=== PATIENT | female | born 1980 | race African-American/Black ===

== ENCOUNTER 2021-03-17 13:19 | Emergency (ER) | payer SELFPAY ==
--- OUTSIDE RECORDS SUMMARY | 2021-03-17 13:27 | XMS REPORT | Continuity of Care Document ---
:1980 Author Organization [facility] t Address [address] [place] [address] Care Team Providers Name Role Phone PCP, DOES NOT HAVE A Primary Care Physician Unavailable ROBBY BOJORQUEZ Attending Clinician Unavailable Robby Bojorquez MD Attending Clinician Georgia Newberry MD Attending Clinician Georgia NEWBERRY Attending Clinician Unavailable Problems Condition Condition Condition Status Onset Resolution Last Treating Co mments Source Name Details Category Date Date Treatment Clinician Date Obesity Obesity Disease Active 2012-03 Univers 2 ity of 00:00: [address] Rubella Rubella Disease Active 2012-03 Univers immune immune 04-27 ity of 00:00: [address] Allergies, Adverse Reactions, Alerts Allergy Allergy Status Severity Reaction(s) Onset Inactive Treating Comm ents Source Name Type Date Date Clinician NO KNOWN Drug Active Univers ALLERGIE Class ity of S [facility] Social History Social Habit Start Date Stop Date Quantity Comments Source Exposure to Unable to assess Univers ity of SARS-CoV-2 [facility] (event) Branch Alcohol intake 2020-05-30 2020-05-30 Current University of 00:00:00 00:00:00 non-drinker of [facility] alcohol Branch (finding) Tobacco use and 2013-02-24 2013-02-24 Never used Universit y of exposure 00:00:00 00:00:00 [facility] Sex Ass[birth year] Universit y of 00:00:00 00:00:00 [facility] Smoking Status Start Date Stop Date Source Never smoker [place] [facility] Medications Ordered Filled Start Stop Current Ordering Indication Dosage Frequency Signature Comments Components Source Medication Medication Date Date Medication? Clinician (SIG) Name Name gentamicin 2020-0 2020- No 2[drp] 2 Drop, U nivers (GENOPTIC) 05-30 Right Eye, it y of 0.3 % 05:45: 04:33 ONCE, 1 [place] ophthalmic 00 :00 dose, Tue Medi simona drops 2 05/30/20 at Branch Drop 0045, SANIYA gentamicin Yes [id number] 2[drp] Place 2 Univers 0.3 % 3-15 9102 Drops in ity of ophthalmic 00:00: [place] drops 00 every 4 Medical (four) Branch hours. gentamicin Yes [id number] 2[drp] Place 2 Univers 0.3 % 3-15 9102 Drops in ity of ophthalmic 00:00: [place] eye [place] drops 00 every 4 Medical (four) Branch hours. acyclovir 5 0 Yes [id number] Apply to Univers % ointment 1-17 area(s) 5 ity of 00:00: (five) [place] 00 times Medical daily. Branch acyclovir 5 2018-0 Yes [id number] Apply to Univers % ointment 1-17 area(s) 5 ity of 00:00: (five) [place] 00 times Medical daily. Branch Immunizations Ordered Filled Immunization Date Status Comments Sour e Immunization Name Name TDAP 2012-02-21 Completed University of 00:00:00 [facility] TDAP 2012-02-21 Completed University of 00:00:00 [facility] Rubella 2006-04-29 Completed University of 00:00:00 [facility] Rubella 2006-04-29 Completed University of 00:00:00 [facility] Hep B, Adol or Pedi 2000-01-10 Completed Unive rsity of Dosage 00:00:00 [facility] Td 2000-01-10 Completed University of 00:00:00 [facility] Hep B, Adol or Pedi 2000-01-10 Completed Unive rsity of Dosage 00:00:00 [facility] Td 2000-01-10 Completed University of 00:00:00 [facility] Hep B, Adol or Pedi 1998-08-15 Completed Unive rsity of Dosage 00:00:00 [facility] Branch Hep B, Adol or Pedi 1998-08-15 Completed Unive rsity of Dosage 00:00:00 [facility] Branch Hep B, Adol or Pedi 1998-03-13 Completed Unive rsity of Dosage 00:00:00 [facility] Branch Hep B, Adol or Pedi 1998-03-13 Completed Unive rsity of Dosage 00:00:00 [facility] Branch DT/Tetanus 1996-10-15 Completed University of 00:00:00 [facility] Branch DT/Tetanus 1996-10-15 Completed University of 00:00:00 [facility] Branch MMR 1991-07-30 Completed University of 00:00:00 [facility] Branch MMR 1991-07-30 Completed University of 00:00:00 [facility] Branch DTP 1986-12-19 Completed University of 00:00:00 [facility] Branch MMR 1986-12-19 Completed University of 00:00:00 [facility] Polio (IPV/OPV) 1986-12-19 Completed Universit y of 00:00:00 [facility] DTP 1986-12-19 Completed University of 00:00:00 [facility] Branch MMR 1986-12-19 Completed University of 00:00:00 [facility] Branch Polio (IPV/OPV) 1986-12-19 Completed Universit y of 00:00:00 [facility] Branch Td 1986-10-19 Completed University of 00:00:00 [facility] Branch Td 1986-10-19 Completed University of 00:00:00 [facility] Polio (IPV/OPV) 1983-05-08 Completed Universit y of 00:00:00 [facility] Branch DTP 1983-05-08 Completed University of 00:00:00 [facility] Branch Polio (IPV/OPV) 1983-05-08 Completed Universit y of 00:00:00 [facility] Branch DTP 1983-05-08 Completed University of 00:00:00 [facility] Branch DTP 1983-02-20 Completed University of 00:00:00 [facility] Branch Polio (IPV/OPV) 1983-02-20 Completed Universit y of 00:00:00 [facility] DTP 1983-02-20 Completed University of 00:00:00 [facility] Branch Polio (IPV/OPV) 1983-02-20 Completed Universit y of 00:00:00 [facility] DTP 1983-01-16 Completed University of 00:00:00 [facility] Polio (IPV/OPV) 1983-01-16 Completed Universit y of 00:00:00 [facility] Branch DTP 1983-01-16 Completed University of 00:00:00 [facility] Branch Polio (IPV/OPV) 1983-01-16 Completed Universit y of 00:00:00 [facility] Vital Signs Vital Name Observation Time Observation Value Comments Source Heart rate 2021-03-04 14:59:00 70 /min Universi ty of [facility] Body temperature 2021-03-04 14:59:00 36.83 Fransisca Univ ersity [facility] Respiratory rate 2021-03-04 14:59:00 18 /min Univ ersity of [facility] Body weight 2021-03-04 14:59:00 127.007 kg Universi ty of [facility] BMI 2021-03-04 14:59:00 49.60 kg/m2 Universi ty of [facility] Oxygen saturation in 2021-03-04 14:59:00 99 /min University of Arterial blood by [place] [employer] simona Pulse oximetry Branch Systolic blood 2020-05-30 02:11:00 166 mm[Hg] Univer sity of pressure [facility] Diastolic blood 2020-05-30 02:11:00 82 mm[Hg] Unive rsity of pressure [facility] Heart rate 2020-05-30 02:11:00 92 /min Universi ty of [facility] Body temperature 2020-05-30 02:11:00 36.61 Fransisca Univ ersity [facility] Respiratory rate 2020-05-30 02:11:00 18 /min Univ ersity of [facility] Body weight 2020-05-30 02:11:00 127.007 kg Universi ty of [facility] BMI 2020-05-30 02:11:00 49.60 kg/m2 Universi ty of [facility] Oxygen saturation in 2020-05-30 02:11:00 99 /min University of Arterial blood by [facility] Pulse oximetry Branch Procedures Procedure Date / Time Performed Performing Clinician [facility] e CONSENT/REFUSAL FOR 2021-03-04 14:55:44 Doctor Unassigned, No Un [facility] DIAGNOSIS AND Name Medical Branch TREATMENT NOTICE OF PRIVACY 2020-05-30 01:58:06 Doctor Unassigned, No Univ ersity [facility] PRACTICES Name Medical Branch CONSENT/REFUSAL FOR 2020-05-30 01:57:45 [facility] Branch TREATMENT Encounters Start End Encounter Admission Attending Care Care Encounter Source Date/Time Date/Time Type Type Clinicians Facility Department ID 2021-03-04 2021-03-04 [facility] [id number] Univers 09:01:00 10:40:00 , KENJI de la cruz of [facility] 2021-03-04 2021-03-[address] [facility] [id number] Univers 09:01:00 10:40:00 , Kenji STEVEN [id number] i ty of Robby ESPARZA [id number] [facility] [id number] [address] 2020-05-29 2020-05-29 Emergency [facility] [id number] Univers 21:15:00 23:37:00 Tico Steven [id number] ity of [place] [id number] [facility] [id number] [address] 2020-05-29 2020-05-29 [facility] [id number] Univers 21:15:00 21:15:00 TICO de la cruz [facility] Results This patient has no known results.
[2021-03-17 16:26] LABS: SARS-COV-2 RT PCR POSITIVE (NEGATIVE)
--- NOTE | 2021-03-17 17:16 | EDPHYS ---
Physician Documentation [facility] Name: Aazel Piedra Age: 40 yrs Sex: Female : 1980 Arrival Date: 03/17/2021 Time: 13:24 Bed 9 Private MD: ED Physician Enrrique Cheung HPI: 03/17 17:21 This 40 yrs old Black Female presents to ER via Ambulatory with complaints of Fever, jr8 Sore Throat, Headache. 17:21 Severity of symptoms: At their worst the symptoms were mild in the emergency department jr8 the symptoms are unchanged. The patient has not experienced similar symptoms in the past. The patient has not recently seen a physician. This is a 40-year-old female that presented to the emergency room with signs and symptoms consistent with Covid. Patient stated that her symptoms started approximately 2 days ago and has not resolved. Came in for further formalized testing for Covid.. 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 - Social history:: Smoking status: Patient denies any tobacco usage or history of. ROS: 17:21 Constitutional: Positive for body aches, chills, fever. jr8 17:21 ENT: Positive for sore throat. 17:21 Respiratory: Positive for cough. 17:21 Abdomen/GI: Positive for diarrhea, Negative for abdominal pain, nausea, vomiting. 17:21 Neuro: Positive for headache. 17:21 All other systems are negative. Exam: 17:21 Constitutional: This is a well developed, well nourished patient who is awake, alert, jr8 and in no acute distress. Eyes: Pupils equal round and reactive to light, extra-ocular motions intact. Lids and lashes normal. Conjunctiva and sclera are non-icteric and not injected. Cornea within normal limits. Periorbital areas with no swelling, redness, or edema. ENT: Nares patent. No nasal discharge, no septal abnormalities noted. Tympanic membranes are normal and external auditory canals are clear. Oropharynx with no redness, swelling, or masses, exudates, or evidence of obstruction, uvula midline. Mucous membranes moist. Neck: Trachea midline, no thyromegaly or masses palpated, and no cervical lymphadenopathy. Supple, full range of motion without nuchal rigidity, or vertebral point tenderness. No Meningismus. Cardiovascular: Regular rate and rhythm with a normal S1 and S2. No gallops, murmurs, or rubs. Normal PMI, no JVD. No pulse deficits. Respiratory: Lungs have equal breath sounds bilaterally, clear to auscultation and percussion. No rales, rhonchi or wheezes noted. No increased work of breathing, no retractions or nasal flaring. Abdomen/GI: Soft, non-tender, with normal bowel sounds. No distension or tympany. No guarding or rebound. No evidence of tenderness throughout. Skin: Warm, dry with normal turgor. Normal color with no rashes, no lesions, and no evidence of cellulitis. MS/ Extremity: Pulses equal, no cyanosis. Neurovascular intact. Full, normal range of motion. Neuro: Awake and alert, GCS 15, oriented to person, place, time, and situation. Cranial nerves II-XII grossly intact. Motor strength 5/5 in all extremities. Sensory grossly intact. Vital Signs: 14:39 BP 157 / 93; Pulse 95; Resp 18; Temp 97.2; Pulse Ox 100% on R/A; Weight 108.86 kg; iw Height 5 ft. 3 in. (160.02 cm); 14:39 Body Mass Index 42.51 (108.86 kg, 160.02 cm) iw MDM: 16:40 Patient medically screened. jr8 17:14 Data reviewed: vital signs, nurses notes, lab test result(s), and as a result, I will jr8 discharge patient. Data interpreted: Pulse oximetry: on room air is 100 %. Interpretation: normal. Counseling: I had a detailed discussion with the patient and/or guardian regarding: the historical points, exam findings, and any diagnostic results supporting the discharge/admit diagnosis, lab results, the need for outpatient follow up, a family practitioner, to return to the emergency department if symptoms worsen or persist or if there are any questions or concerns that arise at home. 17:21 ED course: Close return precautions given to patient if she were to have increase in jr8 respiratory drive, shortness of breath, hypoxia. Also she would not able to tolerate fluids and felt weak. Otherwise to follow with her PCP.. 03/17 14:42 Order name: COVID-19/FLU A+B (Document "Date of Onset" if Symptomatic); Complete Time: iw 16:43 03/17 14:42 Order name: Strep; Complete Time: 16:43 iw 03/17 15:22 Order name: Throat Culture EDMS Administered Medications: No medications were administered Disposition: 03/18 04:39 Co-signature as Attending Physician, Enrrique Cheung MD I agree with the assessment and darrell plan of care. Disposition Summary: 03/17/21 17:16 Discharge Ordered Location: Home jr8 Problem: new jr8 Symptoms: have improved jr8 Condition: Stable jr8 Diagnosis - SARS-associated coronavirus as the cause of diseases classified elsewhere jr8 Followup: jr8 - With: Private Physician - When: 1 week - Reason: Recheck today's complaints, Continuance of care, Re-evaluation by your physician Discharge Instructions: - Discharge Summary Sheet jr8 - COVID-19 jr8 - Things to Know about the COVID-19 Pandemic - [facility] jr8 - 10 Things You Can Do to Manage Your COVID-19 Symptoms at Home - [facility] jr8 Forms: - Medication Reconciliation Form jr8 - Thank You Letter jr8 - Antibiotic Education jr8 - Prescription Opioid Use jr8 - Work release form iw Prescriptions: - promethazine-DM 6.25-15 mg/5 mL Oral syrup - take 5 milliliter by ORAL route every 4-6 hours as needed, not to exceed 30 mL jr8 in 24 hours; 110 milliliter; Refills: 0, Product Selection Permitted - Tessalon Perles 100 mg Oral Capsule - take 1 capsule by ORAL route every 8 hours As needed; 15 capsule; Refills: 0, jr8 Product Selection Permitted Signatures: Dispatcher [employer] Enrrique Anthony MD MD cha Williams, Irene, RN RN iw Rodger Goss PA PA jr8 Corrections: (The following items were deleted from the chart) 03/17 14:41 14:40 PSHx: None; iw 14:42 14:40 Allergies: No Known Allergies; iw
--- NOTE | 2021-03-17 17:16 | ER ---
Nurse's Notes [facility] Name: Azael Piedra Age: 40 yrs Sex: Female : 1980 Arrival Date: 03/17/2021 Time: 13:24 Bed 9 Private MD: Diagnosis: SARS-associated coronavirus as the cause of diseases classified elsewhere Presentation: 03/17 14:39 Chief complaint: Patient states: last few days has had headaches, diarrhea, throat iw hurts, fever this morning of 102. Coronavirus screen: Client presents with at least one sign or symptom that may indicate coronavirus-19. Ebola Screen: Patient negative for fever greater than or equal to 101.5 degrees Fahrenheit, and additional compatible Ebola Virus Disease symptoms Patient denies exposure to infectious person. Patient denies travel to an Ebola-affected area in the 21 days before illness onset. No symptoms or risks identified at this time. Initial Sepsis Screen: Does the patient meet any 2 criteria? No. Patient's initial sepsis screen is negative. Does the patient have a suspected source of infection? No. Patient's initial sepsis screen is negative. Risk Assessment: Do you want to hurt yourself or someone else? Patient reports no desire to harm self or others. Onset of symptoms was March 15, 2021. 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 - Social history:: Smoking status: Patient denies any tobacco usage or history of. Screenin:59 Abuse screen: Denies threats or abuse. Nutritional screening: No deficits noted. al4 Tuberculosis screening: No symptoms or risk factors identified. Fall Risk None identified. Vital Signs: 14:39 BP 157 / 93; Pulse 95; Resp 18; Temp 97.2; Pulse Ox 100% on R/A; Weight 108.86 kg; iw Height 5 ft. 3 in. (160.02 cm); 14:39 Body Mass Index 42.51 (108.86 kg, 160.02 cm) iw ED Course: 13:24 Patient arrived in ED. mr 14:40 Triage completed. iw 16:40 Rodger Goss PA is PHCP. jr8 16:40 Enrrique Cheung MD is Attending Physician. jr8 17:40 Jannie Perez, RN is Primary Nurse. iw 17:59 Patient has correct armband on for positive identification. Bed in low position. Call al4 light in reach. Administered Medications: No medications were administered Outcome: 17:16 Discharge ordered by . jr8 18:01 Patient left the ED. iw Signatures: Antonio Thania mr Jannie Perez, RN RN iw Rodger Goss PA PA jr8 Sp Malhotra al4 Corrections: (The following items were deleted from the chart) 14:41 14:40 PSHx: None; iw iw 14:42 14:40 Allergies: No Known Allergies; iw iw
[2021-03-17 18:09] VITALS: BP 157/93; TEMP 97.2; O2SAT 100
== END 2021-03-17 18:01 | disposition home or self-care (01) ==
LOC: ER 13:19
DX: U07.1 COVID-19 (principal)
CPT/HCPCS: 0240U; 87070; 87081; 99281

== ENCOUNTER 2021-03-20 09:37 | Emergency (ER) | payer SELFPAY ==
--- OUTSIDE RECORDS SUMMARY | 2021-03-20 09:41 | XMS REPORT | Continuity of Care Document ---
:1980 Author Organization [facility] t Address [address] [place] [address] Care Team Providers Name Role Phone PCP, DOES NOT HAVE A Primary Care Physician Unavailable ROBBY BOJORQUEZ Attending Clinician Unavailable Robby oBjorquez MD Attending Clinician Georgia Newberry MD Attending Clinician Georgia NEWBERRY Attending Clinician Unavailable Problems Condition Condition Condition Status Onset Resolution Last Treating Co mments Source Name Details Category Date Date Treatment Clinician Date Obesity Obesity Disease Active 2012-03 Univers 2 ity of 00:00: [address] Rubella Rubella Disease Active 2012-03 Univers immune immune 04-27 ity of 00:00: [address] Allergies, Adverse Reactions, Alerts Allergy Allergy Status Severity Reaction(s) Onset Inactive Treating Comm ents Source Name Type Date Date Clinician NO KNOWN Drug Active Univers ALLERGIE Class ity of S [facility] Social History Social Habit Start Date Stop Date Quantity Comments Source Exposure to Unable to assess Univers ity of SARS-CoV-2 [facility] (event) Branch Alcohol intake 2020-05-30 2020-05-30 Current University of 00:00:00 00:00:00 non-drinker of [facility] alcohol Branch (finding) Tobacco use and 2013-02-24 2013-02-24 Never used Universit y of exposure 00:00:00 00:00:00 [facility] Sex Assigned [birth year] Universit y of 00:00:00 00:00:00 [facility] Smoking Status Start Date Stop Date Source Never smoker [place] [facility] Branch Medications Ordered Filled Start Stop Current [...] at Branch Drop 0045, SANIYA gentamicin Yes [id number] 2[drp] Place 2 Univers 0.3 % 3-15 9102 Drops in ity of ophthalmic 00:00: [place] drops 00 every 4 Medical (four) Branch hours. gentamicin Yes [id number] 2[drp] Place 2 Univers 0.3 % 3-15 9102 Drops in ity of ophthalmic 00:00: [place] eye [place] drops 00 every 4 Medical (four) Branch hours. acyclovir 5 0 Yes [id number] Apply to Univers % ointment 1-17 area(s) 5 ity of 00:00: (five) [place] 00 times Medical daily. Branch acyclovir 5 2018-0 Yes [id number] Apply to Univers % ointment 1-17 area(s) 5 ity of 00:00: (five) [place] 00 times Medical daily. Branch Immunizations Ordered Filled Immunization Date Status Comments Sour e Immunization Name Name TDAP 2012-02-21 Completed University of 00:00:00 [facility] TDAP 2012-02-21 Completed University of 00:00:00 [facility] Rubella 2006-04-29 Completed University of 00:00:00 [facility] Rubella 2006-04-29 Completed University of 00:00:00 [facility] Hep B, Adol or Pedi 2000-01-10 Completed Unive rsity of Dosage 00:00:00 [facility] Td 2000-01-10 Completed University of 00:00:00 [facility] Hep B, Adol or Pedi 2000-01-10 Completed Unive rsity of Dosage 00:00:00 [facility] Td 2000-01-10 Completed University of 00:00:00 [facility] Hep B, Adol or Pedi 1998-08-15 Completed Unive rsity of Dosage 00:00:00 [facility] Branch Hep B, Adol or Pedi 1998-08-15 Completed Unive rsity of Dosage 00:00:00 [facility] Branch Hep B, Adol or Pedi 1998-03-13 Completed Unive rsity of Dosage 00:00:00 [facility] Branch Hep B, Adol or Pedi 1998-03-13 Completed Unive rsity of Dosage 00:00:00 [facility] Branch DT/Tetanus 1996-10-15 Completed University of 00:00:00 [facility] Branch DT/Tetanus 1996-10-15 Completed University of 00:00:00 [facility] Branch MMR 1991-07-30 Completed University of 00:00:00 [facility] Branch MMR 1991-07-30 Completed University of 00:00:00 [facility] Branch DTP 1986-12-19 Completed University of 00:00:00 [facility] Branch MMR 1986-12-19 Completed University of 00:00:00 [facility] Polio (IPV/OPV) 1986-12-19 Completed Universit y of 00:00:00 [facility] DTP 1986-12-19 Completed University of 00:00:00 [facility] Branch MMR 1986-12-19 Completed University of 00:00:00 [facility] Branch Polio (IPV/OPV) 1986-12-19 Completed Universit y of 00:00:00 [facility] Branch Td 1986-10-19 Completed University of 00:00:00 [facility] Branch Td 1986-10-19 Completed University of 00:00:00 [facility] Polio (IPV/OPV) 1983-05-08 Completed Universit y of 00:00:00 [facility] Branch DTP 1983-05-08 Completed University of 00:00:00 [facility] Branch Polio (IPV/OPV) 1983-05-08 Completed Universit y of 00:00:00 [facility] Branch DTP 1983-05-08 Completed University of 00:00:00 [facility] Branch DTP 1983-02-20 Completed University of 00:00:00 [facility] Branch Polio (IPV/OPV) 1983-02-20 Completed Universit y of 00:00:00 [facility] DTP 1983-02-20 Completed University of 00:00:00 [facility] Branch Polio (IPV/OPV) 1983-02-20 Completed Universit y of 00:00:00 [facility] DTP 1983-01-16 Completed University of 00:00:00 [facility] Polio (IPV/OPV) 1983-01-16 Completed Universit y of 00:00:00 [facility] Branch DTP 1983-01-16 Completed University of 00:00:00 [facility] Branch Polio (IPV/OPV) 1983-01-16 Completed Universit y of 00:00:00 [facility] Vital Signs Vital Name Observation Time Observation Value Comments Source Heart rate 2021-03-04 14:59:00 70 /min Universi ty of [facility] Body temperature 2021-03-04 14:59:00 36.83 Fransisca Univ ersity [facility] Respiratory rate 2021-03-04 14:59:00 18 /min Univ ersity of [facility] Body weight 2021-03-04 14:59:00 127.007 kg Universi ty of [facility] BMI 2021-03-04 14:59:00 49.60 kg/m2 Universi ty of [facility] Oxygen saturation in 2021-03-04 14:59:00 99 /min University of Arterial blood by [place] [employer] Pulse oximetry Branch Systolic blood 2020-05-30 02:11:00 166 mm[Hg] Univer sity of pressure [facility] Diastolic blood 2020-05-30 02:11:00 82 mm[Hg] Unive rsity of pressure [facility] Heart rate 2020-05-30 02:11:00 92 /min Universi ty of [facility] Body temperature 2020-05-30 02:11:00 36.61 Fransisca Univ ersity [facility] Respiratory rate 2020-05-30 02:11:00 18 /min Univ ersity of [facility] Body weight 2020-05-30 02:11:00 127.007 kg Universi ty of [facility] BMI 2020-05-30 02:11:00 49.60 kg/m2 Universi ty of [facility] Oxygen saturation in 2020-05-30 02:11:00 99 /min University of Arterial blood by [facility] Pulse oximetry Branch Procedures Procedure Date / Time Performed Performing Clinician [facility] e CONSENT/REFUSAL FOR 2021-03-04 14:55:44 Doctor Unassigned, No Un [facility] DIAGNOSIS AND Name Medical Branch TREATMENT NOTICE OF PRIVACY 2020-05-30 01:58:06 Doctor Unassigned, No Univ ersity [facility] PRACTICES Name Medical Branch CONSENT/REFUSAL FOR 2020-05-30 01:57:45 [facility] Name [facility] Branch TREATMENT Encounters Start End Encounter Admission Attending Care Care Encounter Source Date/Time Date/Time Type Type Clinicians Facility Department ID 2021-03-04 2021-03-04 Emergency [facility] [id number] Univers 09:01:00 10:40:00 , KENJI de la cruz of [facility] 2021-03-04 2021-03-04 [facility] [id number] Univers 09:01:00 10:40:00 , Kenji STEVEN [id number] i ty of Robby ESPARZA [id number] [facility] [id number] [address] 2020-05-29 2020-05-29 Emergency [facility] [id number] Univers 21:15:00 23:37:00 Tico Steven [id number] ity of [place] [id number] [facility] [id number] [address] 2020-05-29 2020-05-29 Emergency X [facility] ERT [id number] Univers 21:15:00 21:15:00 TICO de la cruz [facility] Results This patient has no known results.
--- NOTE | 2021-03-20 10:50 | RAD REPORT ---
EXAM DESCRIPTION: Danielle Medina (2 Views)03/20/2021 10:27 am CLINICAL HISTORY: Cough COMPARISON: None FINDINGS: The lungs appear clear of acute infiltrate. The heart is borderline enlarged IMPRESSION: No acute abnormalities displayed
[2021-03-20 11:20] LABS: Absolute Lymphocytes (CBC) 2.1 K/uL (0.7-4.9); Hematocrit 36.7 % (36.0-45.0); Lymphocytes % 30.1 % (15.3-44.8); MPV 8.2 fL (7.6-11.3); RBC Red Blood Cell Count 5.17 M/uL (3.86-4.86)
[2021-03-20 14:27] LABS: BUN Blood Urea Nitrogen 9 mg/dL (7-18); Bicarbonate 27 mmol/L (21-32); Glucose Level 88 mg/dL (74-106); Potassium 3.9 mmol/L (3.5-5.1); Sodium Level 141 mmol/L (136-145)
--- NOTE | 2021-03-20 15:00 | ER ---
Nurse's Notes [facility] Name: Azael Piedra Age: 40 yrs Sex: Female : 1980 Arrival Date: 03/20/2021 Time: 09:40 Bed 18 Private MD: Diagnosis: Coronavirus infection, unspecified;Chest pain, unspecified Presentation: 03/20 10:07 Chief complaint: Patient states: CP for 2 days. Tested positive for covid Friday. ll1 Coronavirus screen: Vaccine status: Patient reports receiving the 2nd dose of the covid vaccine. Client denies travel out of the [place] in the last 14 days. congestion, cough unrelated to allergies. Ebola Screen: Patient denies travel to an Ebola-affected area in the 21 days before illness onset. Initial Sepsis Screen: Does the patient meet any 2 criteria? No. Patient's initial sepsis screen is negative. Does the patient have a suspected source of infection? No. Patient's initial sepsis screen is negative. Risk Assessment: Do you want to hurt yourself or someone else? Patient reports no desire to harm self or others. Onset of symptoms was March 19, 2021. 10:07 Method Of Arrival: Ambulatory ll1 10:07 Acuity: PRINCESS 3 ll1 Triage Assessment: 11:18 General: Appears in no apparent distress. Behavior is. 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 - Social history:: Smoking status: Patient denies any tobacco usage or history of. Screenin:17 Abuse screen: Denies threats or abuse. Denies injuries from another. Nutritional pompa screening: No deficits noted. Tuberculosis screening: No symptoms or risk factors identified. Fall Risk None identified. Assessment: 11:17 Pain: Complains of pain in chest Pain does not radiate. Pain began gradually. pompa Cardiovascular: Reports chest pain, shortness of breath. Vital Signs: 10:07 BP 150 / 96; Pulse 82; Resp 17; Temp 97.5; Pulse Ox 100% ; Weight 108.86 kg; Height 5 ll1 ft. 3 in. (160.02 cm); Pain 9/10; 11:21 BP 94 / 64; Pulse 72; Resp 18; Pulse Ox 100% on R/A; pompa 13:06 BP 143 / 102; Pulse 74; Resp 18; Pulse Ox 100% on R/A; pompa 13:45 BP 108 / 68; Pulse 77; Resp 18; Pulse Ox 100% ; pompa 10:07 Body Mass Index 42.51 (108.86 kg, 160.02 cm) ll1 ED Course: 09:40 Patient arrived in ED. am2 10:10 Triage completed. ll1 10:10 Iliana Kendrick FNP-C is PHCP. kb 10:10 Bryan Easley MD is Attending Physician. kb 10:10 Arm band placed on. ll1 10:27 XRAY Chest Pa And Lat (2 Views) In Process Unspecified. EDMS 11:17 Patient has correct armband on for positive identification. Bed in low position. pompa hide inspector on. Pulse ox on. NIBP on. 11:17 D-Dimer Sent. pompa 11:17 Basic Metabolic Panel Sent. pompa 11:17 CBC with Diff Sent. pompa 11:17 No provider procedures requiring assistance completed. Inserted saline lock: 20 gauge pompa in left forearm, using aseptic technique. Patient maintains SpO2 saturation greater than 95% on room air. 15:26 IV discontinued, intact, Pressure dressing applied. pompa Administered Medications: No medications were administered Outcome: 14:59 Discharge ordered by . kb 15:25 Discharged to home pompa 15:25 Condition: good 15:25 Discharge instructions given to patient. 15:26 Patient left the ED. pompa Signatures: Dispatcher [employer] EDMT Iliana Kendrick FNP-C FNP-Ckb Moreno, Amanda 2 Darryl Mendieta, RN RN [facility]va Tran RN RN
--- NOTE | 2021-03-20 15:00 | EDPHYS ---
Physician Documentation [facility] Name: Azael Piedra Age: 40 yrs Sex: Female : 1980 Arrival Date: 03/20/2021 Time: 09:40 Bed 18 Private MD: ED Physician Bryan Easley HPI: 03/20 10:32 This 40 yrs old Black Female presents to ER via Ambulatory with complaints of Chest kb Pain, covid+. 10:32 The patient or guardian reports chest pain that is located primarily in the anterior kb chest wall. The pain does not radiate. Associated signs and symptoms: The patient has no apparent associated signs or symptoms. The chest pain is described as aching. Duration: The patient or guardian reports a single episode. Modifying factors: The symptoms are alleviated by nothing. the symptoms are aggravated by nothing. Severity of pain: At its worst the pain was moderate in the emergency department the pain is unchanged. The patient has not experienced similar symptoms in the past. The patient has not recently seen a physician. Pt reports she was diagnosed with covid on Friday and has had chest pain for 2 days. 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 - Social history:: Smoking status: Patient denies any tobacco usage or history of. ROS: 10:29 Constitutional: Negative for fever, chills, and weight loss. kb 10:29 Cardiovascular: Positive for chest pain, Negative for edema, orthopnea, palpitations, paroxysmal nocturnal dyspnea. 10:29 All other systems are negative. Exam: 10:29 Constitutional: This is a well developed, well nourished patient who is awake, alert, kb and in no acute distress. Head/Face: Normocephalic, atraumatic. ENT: Moist Mucous membranes Cardiovascular: Regular rate and rhythm with a normal S1 and S2. No gallops, murmurs, or rubs. No pulse deficits. Respiratory: Respirations even and unlabored. No increased work of breathing. Talking in full sentences Skin: Warm, dry with normal turgor. Normal color. MS/ Extremity: Pulses equal, no cyanosis. Neurovascular intact. Full, normal range of motion. Neuro: Awake and alert, GCS 15, oriented to person, place, time, and situation. Moves all extremities. Normal gait. Psych: Awake, alert, with orientation to person, place and time. Behavior, mood, and affect are within normal limits. Vital Signs: 10:07 BP 150 / 96; Pulse 82; Resp 17; Temp 97.5; Pulse Ox 100% ; Weight 108.86 kg; Height 5 ll1 ft. 3 in. (160.02 cm); Pain 9/10; 11:21 BP 94 / 64; Pulse 72; Resp 18; Pulse Ox 100% on R/A; pompa 13:06 BP 143 / 102; Pulse 74; Resp 18; Pulse Ox 100% on R/A; pompa 13:45 BP 108 / 68; Pulse 77; Resp 18; Pulse Ox 100% ; pompa 10:07 Body Mass Index 42.51 (108.86 kg, 160.02 cm) ll1 MDM: 10:10 Patient medically screened. kb 10:29 Data reviewed: vital signs, nurses notes. Data interpreted: Pulse oximetry: on room air kb is 100 %. Interpretation: normal. 14:42 Counseling: I had a detailed discussion with the patient and/or guardian regarding: the kb historical points, exam findings, and any diagnostic results supporting the discharge/admit diagnosis, lab results, radiology results, the need for outpatient follow up, a family practitioner, to return to the emergency department if symptoms worsen or persist or if there are any questions or concerns that arise at home. 03/20 10:11 Order name: CBC with Diff; Complete Time: 11:27 kb 03/20 10:11 Order name: Basic Metabolic Panel; Complete Time: 14:27 kb 03/20 10:08 Order name: XRAY Chest Pa And Lat (2 Views); Complete Time: 10:53 rn 03/20 10:11 Order name: IV Start; Complete Time: 11:17 kb 03/20 10:11 Order name: D-Dimer; Complete Time: 14:19 kb 03/20 10:11 Order name: EKG; Complete Time: 10:11 kb 03/20 10:11 Order name: EKG - Nurse/Tech; Complete Time: 13:09 kb 03/20 11:27 Order name: Labs - recollect needed: blue and green top, hemolyzed; Complete Time: 15:26dh3 03/20 13:31 Order name: Labs - recollect needed: blue \T\ green top, hemolyzed; Complete Time: 15:26 dh3 Administered Medications: No medications were administered Disposition: 17:47 Co-signature as Attending Physician, Bryan Easley MD I agree with the assessment and rn plan of care. Attestation: The patient's history, exam findings, diagnostics, and a summary of any interventions or procedures was reviewed in detail with Iliana BREWSTER. Disposition Summary: 03/20/21 14:59 Discharge Ordered Location: Home kb Condition: Stable kb Diagnosis - Coronavirus infection, unspecified kb - Chest pain, unspecified kb Followup: kb - With: Emergency Department - When: As needed - Reason: Worsening of condition Followup: kb - With: Private Physician - When: 2 - 3 days - Reason: Recheck today's complaints, Continuance of care, Re-evaluation by your physician Discharge Instructions: - Discharge Summary Sheet kb - Nonspecific Chest Pain, Adult, [id number] kb - Viral Respiratory Infection, [id number] kb - COVID-19 kb Forms: - Medication Reconciliation Form kb - Thank You Letter kb - Antibiotic Education kb - Prescription Opioid Use kb Signatures: Dispatcher [employer] EDMS Iliana Kendrick FNP-C FNP-Bryan Holt MD MD rn [place] [id number] Darryl Mendieta RN RN ll1
[2021-03-20 15:50] VITALS: TEMP 97.5; O2SAT 100
[2021-03-20 15:57] VITALS: BP 108/68
--- NOTE | 2021-03-21 11:25 | EKG ---
Test Date: 2021-03-20 Test Time: 14:42:43 [place]: CHELSEA MEASUREMENT RESULTS: Intervals: Rate: 78 FL: 140 QRSD: 74 QT: 394 QTc: 449 Arabi: P: 27 FL: 140 QRS: 5 T: 13 INTERPRETIVE STATEMENTS: Normal sinus rhythm Normal ECG No previous ECG available for comparison Electronically Signed On 03-21-21 11:22:23 MANAGER INSIDE by J Carlos Mcfadden
== END 2021-03-20 15:26 | disposition home or self-care (01) ==
LOC: ER 09:37
DX: U07.1 COVID-19 (principal); Z91.018 Allergy to other foods
CPT/HCPCS: 36415; 71046; 80048; 85025; 85379; 93005; 99285

== ENCOUNTER 2023-09-20 12:25 | Emergency (ER) | payer SELFPAY ==
--- OUTSIDE RECORDS SUMMARY | 2023-09-20 12:28 | XMS REPORT | Continuity of Care Document ---
Author Name Unknown Address [address] [facility] [address] [place] [address] [facility] thconnect Address [address] [facility] [place] [address] Care Team Providers Care Loan Operations Specialist Name Role Phone Maria Shay Primary Care Physicia n Yuli Rojas CNM Attending Clinician [phone] Lab, Radha Attending Clinician Unavailable Maria Shay Attending Clinician + MARIA WALTERS Attending Clinician Unavail able YULI ROJAS Attending Clinician Unavaila ble Doctor Unassigned, Frederic Attending Clinician U AMMON Ruby Attending Clinician Unavailab nancy Patel RN, Zo Torres Attending Clinician Unavailab le Visit, Radha Nurse Attending Clinician Unava ilAmmon Eid Attending Clinician + [phone] Nga Griffin Attending Clinician [phone] NGA FORTE Attending Clinician Unavailable AGUEDA BOJORQUEZ Attending Clinician Unav Agueda Cabrera MD Attending Clinician + Bright Syed MD Attending Clinician [phone] BRIGHT SYED Attending Clinician Unavailable Payers Payer Name Policy Type Policy Number Effective Date Expirati on Date Source Problems Condition Name Condition Details Condition Category Status Onset Date Resolution Date Last Treatment Date Treating Clinician Comments Source Other general counseling and advice for contracept ashley management Other general counseling and advice for contracept ashley management Disease Active 05-30 00:00: 00 [facility] Numerous skin moles Numerous skin moles Disease Active 05-30 00:00: 00 [facility] Rubella immune Rubella immune Disease Active 2012-03 00:00: 00 [facility] Morbid obesity Morbid obesity Disease Active 2012-03 00:00: 00 [facility] Allergies, Adverse Reactions, Alerts Allergy Name Allergy Type Status Severity Reaction(s) Onset Date Inactive Date Treating Clinician Comments Source NO KNOWN ALLERGIE S Drug Class Active [facility] Social History Social Habit Start Date Stop Date Quantity Comments Source Gender identity [facility] Exposure to SARS-CoV-2 (event) 2022-07-06 00:00:00 2022-07-16 14:29:00 Not sure [facility] Alcohol intake 2022-07-16 00:00:00 2022-07-16 00:00:00 Current non-drinker of alcohol (finding) [facility] History of Social function 2022-07-16 00:00:00 2022-07-16 00:00:00 [facility] Tobacco use and exposure 2021-12-03 00:00:00 2021-12-03 00:00:00 Smokeless tobacco non-user [facility] Sex Assigned At 1980 00:00:00 1980 00:00:00 [facility] Smoking Status Start Date Stop Date Source Never smoked tobacco [facility] Medications Ordered Medication Name Filled Medication Name Start Date Stop Date Current Medication? Ordering Clinician Indication Dosage Frequency Signature (SIG) Comments Components Source Iron Fum & P-FA-Vit B & C No.9 (INTEGRA PLUS) 125 mg iron- 1 mg Cap 07-18 00:00: 00 Yes [id number] 1{capsu le} Take 1 capsule by mouth in the morning. [facility] Iron Fum & P-FA-Vit B & C No.9 (INTEGRA PLUS) 125 mg iron- 1 mg Cap 07-18 00:00: 00 Yes [id number] 1{capsu le} Take 1 capsule by mouth in the morning. [facility] acyclovir 5 % ointment 04-02 00:00: 00 07-16 00:00 :00 No [id number] Apply to area(s) 5 (five) times daily. [facility] Vital Signs Vital Name Observation Time Observation Value Comments S ource Systolic blood pressure 2022-07-16 19:43:00 132 mm[Hg] [facility] Diastolic blood pressure 2022-07-16 19:43:00 76 mm[Hg] [facility] Heart rate 2022-07-16 19:43:00 100 /min [facility] Body temperature 2022-07-16 19:43:00 36.83 Fransisca [facility] Respiratory rate 2022-07-16 19:43:00 18 /min [facility] Body height 2022-07-16 19:43:00 160 cm [facility] Body weight 2022-07-16 19:43:00 139.283 kg [facility] BMI 2022-07-16 19:43:00 54.39 kg/m2 [facility] Systolic blood pressure 2021-12-03 13:33:00 133 mm[Hg] [facility] Diastolic blood pressure 2021-12-03 13:33:00 81 mm[Hg] [facility] Heart rate 2021-12-03 13:33:00 75 /min Unive [facility] Body temperature 2021-12-03 13:33:00 36.72 Fransisca [facility] Respiratory rate 2021-12-03 13:33:00 20 /min [facility] Body height 2021-12-03 13:33:00 160 cm [facility] Body weight 2021-12-03 13:33:00 132.932 kg [facility] BMI 2021-12-03 13:33:00 51.91 kg/m2 [facility] Systolic blood pressure 2021-07-04 13:42:00 135 mm[Hg] [facility] Diastolic blood pressure 2021-07-04 13:42:00 89 mm[Hg] [facility] Heart rate 2021-07-04 13:42:00 76 /min [facility] Body temperature 2021-07-04 13:41:00 35.94 Fransisca [facility] Respiratory rate 2021-07-04 13:41:00 16 /min [facility] Body height 2021-07-04 13:41:00 160 cm [facility] Body weight 2021-07-04 13:41:00 130.228 kg [facility] BMI 2021-07-04 13:41:00 50.86 kg/m2 [facility] Procedures Procedure Date / Time Performed Performing Clinicia n Source GC & CHLAMYDIA AMPLIFIED ASSAY 2022-07-16 21:15:00 Yuli Rojas [facility] ASSIGNMENT OF BENEFITS 2022-07-16 19:30:51 Docto r Unassigned, Frederic [facility] GARDASIL 9 (HPV 9V) VACCINE 2021-12-03 13:40:47 Maria Walters [facility] GARDASIL 9 (HPV 9V) VACCINE 2021-07-04 13:33:47 Maria Walters [facility] REFERRAL- REQUEST/RESPONSE 2021-06-18 05:01:00 Doctor Unassigned, Frederic [facility] Encounters Start Date/Time End Date/Time Encounter Type Admission Type Attending Clinicians Care Facility Care Department Encounter ID Source 2022-10-23 00:00:00 2022-10-23 00:00:00 Telephone Yuli Rojas [facility] COUNSEL[employer] [facility] MATERNAL & CHILD [facility] [id number] 350.1.13.10 4.2.7.2.686 [id number] [facility] 2022-10-21 08:30:00 2022-10-21 08:30:00 Media Assistant Visit Lab, Ang-Rmchp Aneeshhalima Maria Conti [facility] COUNSEL[employer] [facility] & CHILD [facility] [id number] 350.1.13.10 4.2.7.2.686 [id number] [facility] 2022-10-21 08:30:00 2022-10-21 08:29:43 Outpatient R MARIA WALTERS [facility] [id number] [facility] 2022-07-18 00:00:00 2022-07-18 00:00:00 Case Management Yuli Rojas [facility] COUN[employer] [facility] & CHILD [facility] [id number] 350.1.13.10 4.2.7.2.686 [id number] [facility] 2022-07-18 00:00:00 2022-07-18 00:00:00 Telephone Yuli Rojas [facility] COUNSEL[employer] [facility] & CHILD [facility] [id number] 350.1.13.10 4.2.7.2.686 [id number] [facility] 2022-07-17 08:30:00 2022-07-17 14:07:56 Media Assistant Visit Lab, EladioJsxavi GrahammicheleMaria varghese [facility] COUNSELOR [employer] [facility] CHILD [facility] [id number] 350.1.13.10 4.2.7.2.686 [id number] [facility] 2022-07-17 08:30:00 2022-07-17 08:30:00 Outpatient R MARIA WALTERS [facility] [id number] [facility] 2022-07-16 14:45:00 2022-07-16 15:50:45 Outpatient R YULI ROJAS [facility] [id number] [facility] 2022-07-16 14:45:00 2022-07-16 15:50:45 Office Visit Yuli Rojas [facility] COUNSELOR [employer]ATION [facility] MATERNAL & CHILD [facility] 1.0.114 350.1.13.10 4.2.7.2.686 [id number] [facility] 2022-07-16 13:15:00 2022-07-16 13:15:00 Outpatient R [facility] [id number] [facility] 2022-07-16 00:00:00 2022-07-16 00:00:00 Orders Only Doctor Unassigned, Frederic [facility] 1.0.114 350.1.13.10 4.2.7.2.686 [id number] [facility] 2022-07-12 08:00:00 2022-07-12 08:00:00 Outpatient R YULI ROJAS [facility] [id number] [facility] 2022-06-03 13:00:00 2022-06-03 13:00:00 Outpatient R AMMON MANLEY [facility] [id number] [facility] 2022-06-03 13:00:00 2022-06-03 13:00:00 Outpatient R MARIA WALTERS [facility] [id number] [facility] 2022-01-01 00:00:00 2022-01-01 00:00:00 Telephone Maria Walters [facility] COUNSEL[employer] [facility] MATERNAL & CHILD [facility] 1.84.114 350.1.13.10 4.2.7.2.686 [id number] [facility] 2022-01-01 00:00:00 2022-01-01 00:00:00 Nurse Triage Zo Patel [facility] 1..114 350.1.13.10 4.2.7.2.686 [id number] [facility] 2021-12-03 08:30:00 2021-12-03 08:40:57 Nurse Visit Visit, Ang-Rmchp Nurse Ammon Manley [facility] COUNSELOR [employer]ATION [facility] MATERNAL & CHILD [facility] [id number] 350.1.13.10 4.2.7.2.686 [id number] [facility] 2021-12-03 08:30:00 2021-12-03 08:30:00 Outpatient R AMMON MANLEY [facility] [id number] [facility] 2021-07-04 10:30:00 2021-07-04 10:30:00 Outpatient R [facility] [id number] [facility] 2021-07-04 09:00:00 2021-07-04 09:00:00 Nurse Visit Visit, Anthony-Rmchp Ammon Kelley [facility] COUNSEL[employer] [facility] [id number] 350.1.13.10 4.2.7.2.686 [id number] [facility] 2021-07-04 08:30:00 2021-07-04 08:30:00 Outpatient R AMMON MANLEY [facility] [id number] [facility] 2021-07-02 15:00:00 2021-07-02 15:00:00 Outpatient R [facility] [id number] [facility] 2021-07-02 15:00:00 2021-07-02 15:00:00 Outpatient R MARIA WALTERS [facility] [id number] [facility] 2021-07-02 15:00:00 2021-07-02 15:00:00 Outpatient R MARIA WALTERS [facility] [id number] [facility] 2021-06-28 15:30:00 2021-06-28 15:30:00 Outpatient R [facility] [id number] [facility] 2021-06-18 00:00:00 2021-06-18 00:00:00 Orders Only Doctor Unassigned, Frederic [facility] 1.2840.114 350.1.13.10 4.2.7.2.686 [id number] [facility] 2021-06-06 00:00:00 2021-06-06 00:00:00 Telephone Maria Walters [facility] [employer]SEL[employer] [facility] [id number] 350.1.13.10 4.2.7.2.686 [id number] [facility] 2021-06-01 00:00:00 2021-06-01 00:00:00 Telephone Maria Walters [facility] COUNSELOR N[employer]ATION [facility] CHILD [facility] 1.2840.114 350.1.13.10 4.2.7.2.686 [id number] [facility] 2021-05-31 00:00:00 2021-05-31 00:00:00 Telephone Maria Walters COUNSEL[employer] [facility] CHILD [facility] 1.2840.114 350.1.13.10 4.2.7.2.686 [id number] [facility] 2021-05-30 13:15:00 2021-05-30 14:28:18 Outpatient R MARIA WALTERS [facility] [id number] [facility] 2021-05-30 13:15:00 2021-05-30 14:28:18 Office Visit Maria Walters [employer] [facility] CH[facility] 1.2840.114 350.1.13.10 4.2.7.2.686 [id number] [facility] 2021-05-30 13:15:00 2021-05-30 14:28:18 Outpatient R MARIA WALTERS [facility] [id number] [facility] 2021-05-30 13:15:00 2021-05-30 13:15:00 Outpatient R MARIA WALTERS [facility] [id number] [facility] 2021-05-30 00:00:00 2021-05-30 00:00:00 Orders Only Doctor Unassigned, Frederic [facility] 1.2840.114 350.1.13.10 4.2.7.2.686 [id number] [facility] 2021-04-27 08:00:00 2021-04-27 08:30:00 Office Visit Nga Forte [facility] 1.84.114 350.1.13.10 4.2.7.2.686 [id number] [facility] 2021-04-27 08:00:00 2021-04-27 08:00:00 Outpatient R NGA FORTE [facility] [id number] [facility] 2021-04-27 08:00:00 2021-04-27 08:00:00 Outpatient NGA ARMSTRONG [facility] [id number] [facility] 2021-03-04 09:01:00 2021-03-04 10:40:00 Emergency X MICHAELAGUEDA MG [facility] ERT [id number] [facility] 2021-03-04 09:01:00 2021-03-04 10:40:00 Emergency Agueda Bojorquez [facility] 1.2840.114 350.1.13.10 4.2.7.2.686 [id number] [facility] 2020-05-29 21:15:00 2020-05-29 23:37:00 Emergency Bright Syed [facility] 1.2840.114 350.1.13.10 4.2.7.2.686 [id number] [facility] 2020-05-29 21:15:00 2020-05-29 21:15:00 Emergency X BRIGHT SYED [facility] ERT [id number] [facility] Results Test Description Test Time Test Comments Results Result Co mments Source LIPID [id number] 04:06:40* Test Item Value Reference Range Interpretation Comme nts CHOLESTEROL (test code = 2210) 189 MG/DL <200 TRIGLYCERIDES (test code = 2232) 122 MG/DL <150 HDL CHOLESTEROL (test code = 2220) 47 MG/DL >39 CALC LDL CHOL (test code = 2237) 119 MG/DL <100 H NOTE: CALCULATED LDL IS BASED ON KHRIS-ABREU METHOD WHICHINCLUDES ADJUSTABLE TRIGLYCERIDE:VLDL CHOLESTEROL RATIO.THIS FACTOR VARIES BY MEASURED TRIGLYCERIDE AND NON-HDLCHOLESTEROL CONCENTRATIONS WITH INCREASED CALCULATED LDL SEENIN HIGHER TRIGLYCERIDE OR LOWER NON-HDL SPECIMENS. FOR MOREINFORMATION, SEE CLIENT ANNOUNCEMENT AT [email or web address] RISK RATIO LDL/HDL (test code = 2238) 2.53 RATIO <3.22 UNLESS OTHERW ISE INDICATED, ALL TESTING PERFORMED [facility] [address] [place] [id number] [employer]ILDING CONSTRUCTION IRONWORKER: JESUS REYNA M.D. CLIA NUMBER [id number] [facility] [place]. [id number] Notes Date/Time Note Provider Source 2022-10-23 09:25:58 [id number]:25:58F ormatting of this note might be different from the original.Notified patient of CBC results. Pt states she did start iron back in July as recommended. She states she did not take it daily. Reviewed results. Advised to take iron daily, increase iron rich foods, and establish care with PCP for further management. Pt verbalized understanding. SHEILA DAVENPORT RN 10/23/2022 9:27 AM [id number] encounter [id number]:27:19Telephone encounter [id number] 9|[id number] for patient [id number] YYXFPFDPURTQAOWZ0436-93-15X61:27:191.2.840 .713038.1.72.3.15|1.2.840.167656.1.13.104. [id number] [facility] 2022-10-23 07:42:54 [id number]:42:54F ormatting of this note might be different from the original.Please contact patient and have her start OTC iron supplement daily, increase iron rich foods, and follow up with PCP since this is ongoing issue. [id number] encounter [id number]:44:10Telephone encounter [id number] 9|[id number] for patient [id number] [id number]:44:101.2.840 .452770.1.72.3.15|1.2.840.506789.1.13.104. [id number] [facility]"
[2023-09-20 13:15] LABS: Absolute Basophils 0.1 K/uL (0-0.5); Absolute Eosinophils 0.2 K/uL (0-0.5); Absolute Lymphocytes (CBC) 2.3 K/uL (0.7-4.9); Absolute Monocytes 0.9 K/uL (0.1-1.3); Absolute Neutrophil 7.1 K/uL (1.8-8.0); Basophils % 0.8 % (0-1.3); Eosinophils % 1.6 % (0-4.4); Hematocrit 30.7 % (36.0-45.0); Hemoglobin 9.3 g/dL (12.0-15.0); Lymphocytes % 21.9 % (15.3-44.8); MCH 19.8 pg (27.0-35.0); MCHC 30.2 g/dL (32.0-36.0); MCV 65.5 fL (80-100); MPV 8.1 fL (7.6-11.3); Monocytes % 8.2 % (3.3-12.3); Neutrophils % 67.5 % (41.7-73.7); Platelets 327 thou/uL (152-406); RBC Red Blood Cell Count 4.69 M/uL (3.86-4.86); Red Cell Distribution Width 18.6 % (12.1-15.2)
[2023-09-20 13:23] LABS: Sqamous Epithelial 20-50 /HPF (None Seen); Urine Bacteria <20 /HPF (<20); Urine Culture Reflex Order NOT NEEDED; Urine Microscopic Reflex YN ORDER UMIC; Urine Mucus 2+ /HPF (None Seen); Urine WBC <5 /HPF (<5)
[2023-09-20 13:26] LABS: Specific Gravity 1.038 (1.005-1.030); Urine Bilirubin NEGATIVE (Negative); Urine Blood 3+ (OVER) (Negative); Urine Clarity Slightly Cloudy (Clear); Urine Color Light-Yellow (Yellow); Urine Glucose Negative (Negative); Urine Ketones Trace (Negative); Urine Protein 1+ (Negative); Urine pH 6.5 (5.0-7.0)
[2023-09-20 13:27] LABS: Specific Gravity > 1.030 (1.005-1.030); Urine Nitrite Negative (Negative); Urine Urobilinogen 1+ (Normal)
[2023-09-20 14:10] LABS: Blood Morphology Comment NOTED (NOT SEEN); Hypochromasia 2+; Platelet Estimate ADEQ; White Blood Cell Scan OK (OK)
--- NOTE | 2023-09-20 14:37 | RAD REPORT ---
EXAM DESCRIPTION: US - Pelvis Complete - 09/20/2023 2:00 pm CLINICAL HISTORY: VAGINAL BLEEDING Pelvic pain. COMPARISON: <Comparisons> FINDINGS: The uterus is enlarged and contains at least 2 large fundal fibroids. The uterus measures 13.5 x 10.5 x 6.0 cm. The endometrial stripe measures 5-6 mm, normal. Both ovaries are normal in size, shape and echotexture. The right ovary measures 5.1 x 3.8 cm. The left ovary measures 3.1 x 3.3 cm.. No ovarian or parovarian lesions. No adnexal masses. Normal Doppler blood flow was demonstrated to both ovaries. No significant pelvic ascites. IMPRESSION: At least 2 prominent fundal myometrial fibroids are noted.
--- NOTE | 2023-09-20 14:48 | EDPHYS ---
Physician Documentation [facility] Name: Azael Piedra Age: 42 yrs Sex: Female : 1980 Arrival Date: 09/20/2023 Time: 12:25 Bed 4 Private MD: ED Physician Bryan Easley HPI: 09/19 12:59 This 42 yrs old Black Female presents to ER via Ambulatory with complaints of Vaginal kb Bleeding. 12:59 Pt is a 42 year old female who presents for vaginal bleeding that started this morning. kb States she completed her cycle the week of 09/09 so she should not have any bleeding at this time. Denies pain. States she normally has a 7 day period each month so this is very abnormal for her. . 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 - Infectious Disease History:: Denies. - Social history:: Smoking status: Patient denies any tobacco usage or history of. ROS: 13:00 Constitutional: As per HPI kb Exam: 13:00 Constitutional: This is a well developed, well nourished patient who is awake, alert, kb and in no acute distress. Head/Face: Normocephalic, atraumatic. ENT: Moist Mucous membranes Cardiovascular: Regular rate Respiratory: Respirations even and unlabored. No increased work of breathing. Talking in full sentences Abdomen/GI: Soft, non-tender. No distention Skin: Warm, dry with normal turgor. Normal color. MS/ Extremity: Pulses equal, no cyanosis. Neurovascular intact. Full, normal range of motion. Neuro: Awake and alert, GCS 15, oriented to person, place, time, and situation. Moves all extremities. Normal gait. Vital Signs: 12:33 BP 158 / 87; Pulse 84; Resp 16; Temp 98.1(TE); Pulse Ox 98% on R/A; Weight 108.86 kg; tl4 Height 5 ft. 3 in. ; Pain 0/10; 14:37 BP 138 / 78; Pulse 75; Resp 16; Pulse Ox 98% on R/A; ph 12:33 Body Mass Index 42.51 (108.86 kg, 160.02 cm) tl4 12:33 Pain Scale: Adult tl4 MDM: 12:29 Patient medically screened. rn 13:00 Differential diagnosis: menorrhea, uterine fibroids, urinary tract infection. Data kb reviewed: vital signs, nurses notes. 14:47 Counseling: I had a detailed discussion with the patient and/or guardian regarding the kb historical points, exam findings, and any diagnostic results supporting the discharge/admit diagnosis, lab results, radiology results, the need for outpatient follow up, an OB/Gyne specialist, to return to the emergency department if symptoms worsen or persist or if there are any questions or concerns that arise at home. 09/19 12:42 Order name: CBC with Diff; Complete Time: 14:13 kb 09/19 12:42 Order name: Test, Urine; Complete Time: 13:39 kb 09/19 12:42 Order name: Urinalysis w/ reflexes; Complete Time: 13:39 kb 09/19 13:17 Order name: CBC Smear Scan; Complete Time: 14:13 EDMS 09/19 12:42 Order name: US Pelvis Complete; Complete Time: 14:41 kb Administered Medications: No medications were administered Disposition: 19:03 Co-signature as Attending Physician, Bryan Easley MD I reviewed the patient's care rn provided by the Advanced Practice Provider and agree with the diagnosis and treatment plan. Disposition Summary: 09/20/23 14:48 Discharge Ordered Notes: Location: Home kb Condition: Stable kb Diagnosis - Leiomyoma of uterus, unspecified kb - Irregular menstruation, unspecified kb Followup: kb - With: Emergency Department - When: As needed - Reason: Worsening of condition Followup: kb - With: Private Physician - When: 2 - 3 days - Reason: Recheck today's complaints, Continuance of care, Re-evaluation by your physician Discharge Instructions: - Discharge Summary Sheet kb - Uterine Fibroids kb - Abnormal Uterine Bleeding, Pmxh-wa-Ozpb kb Forms: - Work release form kb - Medication Reconciliation Form kb - Antibiotic Education kb - Prescription Opioid Use kb - Patient Portal Instructions kb - Leadership Thank You Letter kb Signatures: Dispatcher [employer] EDIliana Espinoza, DAYCARE MANAGER-C DAYCARE MANAGER-Bryan Holt MD MD rn Gabriel Goel RN RN tl4 Corrections: (The following items were deleted from the chart) 12: 12:43 CBC+H.LAB.BRZ ordered. EDMS EDMS 12:43 Test, Urine+UC.LAB.BRZ ordered. EDMS EDMS : 12:43 Urinalysis+U.LAB.BRZ ordered. EDMS EDMS : 12:43 Pelvis Complete+US.RAD.BRZ ordered. EDMS EDMS
--- NOTE | 2023-09-20 14:48 | ER ---
Nurse's Notes [facility] Name: Azael Piedra Age: 42 yrs Sex: Female : 1980 Arrival Date: 09/20/2023 Time: 12:25 Bed 4 Private MD: Diagnosis: Leiomyoma of uterus, unspecified;Irregular menstruation, unspecified Presentation: 09/19 12:33 Chief complaint: Patient states: Pt c/o vaginal bleeding without pain. Pt states she tl4 had normal period on 09/10. Yesterday pt had hematuria, today bleeding is heavier. Pt denies any chance of . Coronavirus screen: At this time, the client does not indicate any symptoms associated with coronavirus-19. Ebola Screen: No symptoms or risks identified at this time. Initial Sepsis Screen: Does the patient meet any 2 criteria? No. Patient's initial sepsis screen is negative. Does the patient have a suspected source of infection? No. Patient's initial sepsis screen is negative. Risk Assessment: Do you want to hurt yourself or someone else? Patient reports no desire to harm self or others. Onset of symptoms was September 20, 2023. 12:33 Method Of Arrival: Ambulatory tl4 12:33 Acuity: PRINCESS 3 tl4 Triage Assessment: 12:36 General: Appears in no apparent distress. Behavior is calm, cooperative. Pain: Denies tl4 pain. EENT: No signs and/or symptoms were reported regarding the EENT system. Neuro: Level of Consciousness is awake, alert, obeys commands, Oriented to person, place, time, situation, Moves all extremities. Full function Gait is steady, Speech is normal. Cardiovascular: Capillary refill < 3 seconds Patient's skin is warm and dry. Respiratory: Airway is patent Respiratory effort is even, unlabored, Respiratory pattern is regular, symmetrical, Breath sounds are clear bilaterally. GI: No signs and/or symptoms were reported involving the gastrointestinal system. : Reports vaginal bleeding that is light flow, since this morning. Derm: No signs and/or symptoms reported regarding the dermatologic system. Musculoskeletal: No signs and/or symptoms reported regarding the musculoskeletal system. 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 - Infectious Disease History:: Denies. - Social history:: Smoking status: Patient denies any tobacco usage or history of. Screenin:06 [facility] ED Fall Risk Assessment (Adult) History of falling in the last 3 months, ph including since admission No falls in past 3 months (0 pts) Confusion or Disorientation No (0 pts) Intoxicated or Sedated No (0 pts) Impaired Gait No (0 pts) Mobility Assist Device Used No (0 pt) Altered Elimination No (0 pt) Score/Fall Risk Level 0 - 2 = Low Risk Oriented to surroundings, Maintained a safe environment, Hourly rounding (assess needs \T\ fall precautionary measures) done. Abuse screen: Denies threats or abuse. Denies injuries from another. Nutritional screening: No deficits noted. Tuberculosis screening: No symptoms or risk factors identified. Assessment: 13:07 General: Appears in no apparent distress. comfortable, Behavior is calm, cooperative, ph Denies fever, feeling ill. Pain: Denies pain. Neuro: Level of Consciousness is awake, alert, obeys commands, Oriented to person, place, time, situation. Cardiovascular: Capillary refill < 3 seconds in bilateral fingers Patient's skin is warm and dry. Respiratory: Airway is patent Respiratory effort is even, unlabored, Respiratory pattern is regular, symmetrical. : Reports vaginal bleeding that is brown, moderate flow, Denies cramping pain. Derm: Skin is pink, warm \T\ dry. 14:37 Reassessment: Patient appears in no apparent distress at this time. Patient and/or ph family updated on plan of care and expected duration. Pain level reassessed. Patient is alert, oriented x 3, equal unlabored respirations, skin warm/dry/pink. Vital Signs: 12:33 BP 158 / 87; Pulse 84; Resp 16; Temp 98.1(TE); Pulse Ox 98% on R/A; Weight 108.86 kg; tl4 Height 5 ft. 3 in. ; Pain 0/10; 14:37 BP 138 / 78; Pulse 75; Resp 16; Pulse Ox 98% on R/A; ph 12:33 Body Mass Index 42.51 (108.86 kg, 160.02 cm) tl4 12:33 Pain Scale: Adult tl4 ED Course: 12:29 Patient arrived in ED. mg5 12:29 Bryan Easley MD is Attending Physician. rn 12:32 Iliana Kendrick FNP-C is [facility]. kb 12:36 Triage completed. tl4 12:37 Arm band placed on right wrist. tl4 12:46 Dee Dee Lutz, RN is Primary Nurse. ph 13:06 Patient has correct armband on for positive identification. Placed in gown. Bed in low ph position. Call light in reach. Side rails up X 1. Pulse ox on. NIBP on. Door closed. Noise minimized. PO fluids given. 13:06 Initial lab(s) drawn, by mn, sent to lab. Urine collected: clean catch specimen, ph cloudy, tammy colored, blood tinged. Inserted saline lock: 22 gauge in right antecubital area, using aseptic technique. Blood collected. 13:10 Test, Urine Sent. ph 13:10 Urinalysis w/ reflexes Sent. ph 13:10 CBC with Diff Sent. ph 14:02 US Pelvis Complete In Process Unspecified. EDMS 14:56 No provider procedures requiring assistance completed. IV discontinued, intact, ph bleeding controlled, No redness/swelling at site. Pressure dressing applied. Administered Medications: No medications were administered Medication: 13:06 VIS not applicable for this client. ph Outcome: 14:48 Discharge ordered by . kb 14:56 Discharged to home ambulatory, ph 14:56 Condition: good 14:56 Discharge instructions given to patient, Instructed on discharge instructions, follow up and referral plans. Demonstrated understanding of instructions, follow-up care, 14:57 Patient left the ED. ph Signatures: Dispatcher [employer] EDMS Iliana Kendrick FNP-C FNP-Bryan Holt MD MD rn Hall, Patricia, RN RN Lion Darlene mg5 Gabriel Goel RN RN tl4 Corrections: (The following items were deleted from the chart) 12:49 12:33 BP 158 / 87; Pulse 84bpm; Resp 16bpm; Pulse Ox 98% RA; Temp 36.7F Temporal; tl4 Height 5 ft. 3 in.; Pain 0/10, Adult; tl4
[2023-09-20 15:04] VITALS: BP 138/78; TEMP 98.1; O2SAT 98
== END 2023-09-20 14:57 | disposition home or self-care (01) ==
LOC: ER 12:25
DX: N92.6 Irregular menstruation, unspecified (principal); D25.9 Leiomyoma of uterus, unspecified
CPT/HCPCS: 36415; 76856; 81001; 81025; 85025; 99284